=== PATIENT | male | born 1990 | race African-American/Black ===

== ENCOUNTER 2016-05-08 02:59 | Emergency (ER) | payer OTHER | END 2016-05-08 03:37 | disposition home or self-care (01) | LOC: CED 02:59 | DX: N34.1 Nonspecific urethritis (principal); F17.200 Nicotine dependence, unspecified, uncomplicated | CPT/HCPCS: 96372; 99283; J0696 ==

== ENCOUNTER 2016-08-11 23:10 | Emergency (ER) | payer OTHER ==
--- NOTE | ~2016-08-11 | CT4 ---
[facility] A Service of [facility] RADIOLOGY TEXT RESULTS PATIENT: PAULINE FERRIS LOCATION: [facility] : [birth year] UNIT #: [id number] AGE: [address]: Bolivar Del Castillo SEX: M ORDER DR: [id number] [facility] [place], [place] [address] [id number] MR#: [id number] Acc #: [id number] NAME: PAULINE FERRIS. : 1990 SEX: M STUDY DATE/TIME: 08/12/2016 0:50 UNIT: [facility] ROOM: STUDY DESCRIPTION: CT Abd and Pelv Wo Cont Attending Physician: Boliavr Del Castillo P.A.-C. Ordering Physician: Bolivar Del Castillo P.A.-C. Primary Care Physician: Primary Care Physician No MEDICAL IMAGING REPORT This report is preliminary unless electronic signature is present EXAM CT abdomen and pelvis, noncontrast, kidney stone protocol, 08/12/2016 HISTORY 26-year-old male complaining of 2-day history of pain across the lower back and flank region. TECHNIQUE CT examination of the abdomen and pelvis was performed without oral or IV contrast using kidney stone protocol. This CT exam was performed with one or more of the following radiation dose reduction techniques: automatic exposure control, adjustment of mA and/or kV according to patient size, and iterative reconstruction. FINDINGS ABDOMEN FINDINGS: Both kidneys, both ureters and the urinary bladder are normal in noncontrast CT appearance. No visible nephrolithiasis or evidence of urinary obstruction. No change since the previous study of 07/04/2013. Liver, pancreas and spleen are normal in size and appearance. Contracted gallbladder. No bile duct dilatation. Small bowel and colon are normal in caliber and appearance, as imaged. The appendix is normal. Normal-caliber abdominal aorta. PELVIS FINDINGS: Bladder, prostate and rectum appear normal. No inguinal hernia or abdominal wall hernia. Limited lung base images are negative. IMPRESSION [facility] A Service of [facility] RADIOLOGY TEXT RESULTS PATIENT: PAULINE FERRIS LOCATION: [facility] #: [id number] : [birth year] UNIT #: [id number] AGE: [address]: Bolivar Del Castillo PAC SEX: M ORDER DR: Negative CT examination of the abdomen and pelvis using kidney stone protocol. Dictated by... Abdulkadir Jeffery M.D. THIS IS AN ELECTRONICALLY VERIFIED REPORT Abdulkadir Jeffery M.D. at 08/12/2016 6:03 AM NEAL/elgin TD: 08/12/2016 04:42 JOB #: [id number] MEDICAL IMAGING REPORT Page 1 of 1 COPY
[2016-08-12 00:11] LABS: URINE SOURCE CLEAN CATCH
[2016-08-12 00:19] LABS: URINE APPEARANCE CLEAR; URINE BILIRUBIN NEG (NEG); URINE BLOOD NEG (NEG); URINE COLOR YELLOW; URINE GLUCOSE NEG (NEG); URINE KETONE TRACE (NEG); URINE LEUKOCYTE ESTERASE NEG (NEG); URINE NITRATE NEG (NEG); URINE PH 5.5 (5-8); URINE PROTEIN NEG (NEG); URINE SPECIFIC GRAVITY 1.018 (1.003-1.035)
[2016-08-12 00:24] LABS: CULTURE INDICATED? NO
[2016-08-14 02:40] LABS: CHLAMYDIA TRACH Not Detected (Not Detected); N GONOR Not Detected (Not Detected)
== END 2016-08-12 01:40 | disposition home or self-care (01) ==
LOC: CED 23:10
PROVIDERS: Emergency Medicine; Physician Assistant
DX: M54.5 Low back pain (principal); R30.0 Dysuria
CPT/HCPCS: 74176; 81003; 87491; 87591; 96372; 99284; J0696